=== PATIENT | male | born 1990 | race Native Hawaiian/Other Pacific Islander ===

== ENCOUNTER 2022-08-12 12:32 | Emergency (ER) | payer OTHER ==
[~2022-08-12] VITALS: Ht 172.7 cm; Wt 104.3 kg
[2022-08-12 12:34] VITALS: TEMP 98.5
[2022-08-12 13:26] VITALS: BP 111/68
== END 2022-08-12 13:29 | disposition home or self-care (01) ==
LOC: ED 12:32
PROC: 0HQKXZZ Repair Right Lower Leg Skin, External Approach (ICD-10-PCS; principal; 2022-08-12)
DX: S81.811A Laceration without foreign body, right lower leg, initial encounter (principal); W45.8XXA Other foreign body or object entering through skin, initial encounter; Y92.89 Other specified places as the place of occurrence of the external cause
CPT/HCPCS: 99282; J7040